=== PATIENT | male | born 1970 | race Caucasian/White ===

== ENCOUNTER → 2022-06-29 | Outpatient (CLI) | payer OTHER ==
[~2022-06-29] MED LIST: AMLO10 PO; FLUO10 PO; HYDCHL25 PO
== END | disposition home or self-care (01) ==
LOC: LAB SHORT 16:20
DX: L02.211 Cutaneous abscess of abdominal wall (principal)
CPT/HCPCS: 87070; 87075; 87077; 87147; 87186; 87205

== ENCOUNTER → 2023-11-19 | Outpatient (CLI) | payer OTHER ==
[2023-11-21 08:07] LABS: A/G RATIO 1.9 (1.2-2.2); BILIRUBIN, TOTAL 0.3 mg/dL (0.0-1.2); CREATININE, SERUM 1.11 mg/dL (0.76-1.27); GLOBULIN, TOTAL 2.2 g/dL (1.5-4.5); POTASSIUM, SERUM 4.5 mmol/L (3.5-5.2); PROTEIN, TOTAL, SERUM 6.3 g/dL (6.0-8.5)
== END | disposition home or self-care (01) ==
LOC: LAB SHORT 17:38
PROVIDERS: Family Medicine
DX: I10 Essential (primary) hypertension (principal)
CPT/HCPCS: 80053

== ENCOUNTER 2025-03-12 17:45 | Emergency (ER) | payer BC, OTHER ==
[~2025-03-12] VITALS: Ht 182.9 cm; Wt 140.6 kg
[~2025-03-12 17:45] MED LIST changes: +ASPI81CH PO; +ATOR40TA PO; +BUPROPION HCL200 M1 PO; +LISI10 PO; +LISINOPRIL-HCT1 EACH PO; +METO25 PO; +NITR.4SL SL; +OMEP20ER PO; +TERA5 PO; +TOPI25 PO; +TOPI25C PO
[2025-03-12 18:05] VITALS: BP 154/99
[2025-03-12 18:28] LABS: BASOPHILS ABSOLUTE AUTO 0.09 K/mm3 (0.00-0.23); BASOPHILS PERCENT AUTO 1 % (0-2); EOSINOPHILS ABSOLUTE AUTO 0.42 K/mm3 (0.00-0.68); EOSINOPHILS PERCENT AUTO 4 % (0-6); Hematocrit 41.3 % (37.0-53.0); Hemoglobin 14.2 g/dL (13.5-17.5); IMMATURE GRAN ABSOLUTE AUTO 0.01 K/mm3 (0.00-0.10); IMMATURE GRAN PERCENT AUTO 0 % (0-1); LYMPHOCYTES ABSOLUTE AUTO 3.97 K/mm3 (0.84-5.20); LYMPHOCYTES PERCENT AUTO 38 % (21-46); MONOCYTES ABSOLUTE AUTO 0.93 K/mm3 (0.16-1.47); MONOCYTES PERCENT AUTO 9 % (4-13); Mean Corpuscular HGB 28.8 pg (26.0-34.0); Mean Corpuscular HGB Conc 34.4 g/dL (31.5-36.5); Mean Corpuscular Volume 84 fL (80-100); Mean Platelet Volume 9.2 fL (9.1-12.4); NEUTROPHILS ABSOLUTE AUTO 4.91 K/mm3 (1.96-9.15); NEUTROPHILS PERCENT AUTO 48 % (41-73); Platelet Count 346 K/mm3 (150-400); RDW Standard Deviation 39.5 fL (35.1-46.3); Red Blood Cell Count 4.93 M/mm3 (4.30-5.90); White Blood Cell Count 10.33 K/mm3 (4.00-11.30)
[2025-03-12 18:51] LABS: Albumin, Blood 3.3 g/dL (3.4-5.0); Albumin/Globulin Ratio 0.9 (0.8-1.8); Bilirubin, Total 0.2 mg/dL (0.1-1.0); Bun/Creatinine Ratio 16.5 (12.0-20.0); Calcium, Blood 8.5 mg/dL (8.5-10.1); Creatinine, Blood 1.03 mg/dL (0.60-1.20); Globulin, Blood 3.5 g/dL (2.2-4.0); Potassium, Blood 3.7 mmol/L (3.5-5.5); Total Protein, Blood 6.8 g/dL (6.4-8.2)
[2025-03-12 18:59] LABS: Source, Urine Clean Catch
[2025-03-12 19:05] LABS: Appearance, Urine Clear (Clear); Bilirubin, Urine Neg (Neg); Blood, Urine 5+ (Neg); Color, Urine Yellow (P-Yellow); Glucose Qualitative, Urine Neg (Neg); Ketones, Urine Neg (Neg); Leukocyte Esterase, Urine Neg (Neg); Nitrite, Urine Neg (Neg); Protein, Urine 1+ (Neg); Urobilinogen, Urine NORM (Normal)
[2025-03-12 19:24] LABS: Bacteria Few /hpf; Mucus Light (0-Heavy); Red Blood Cells, Urine 50-100 /hpf (0-2); Squamous Epithelial Cells Not Seen /hpf (Few); White Blood Cells, Urine 0-2 /hpf (0-5)
== END 2025-03-12 20:33 | disposition left against medical advice (07) ==
LOC: ER 17:45
PROVIDERS: Student in an Organized Health Care Education/Training Program
DX: R31.9 Hematuria, unspecified (principal); Z53.21 Procedure and treatment not carried out due to patient leaving prior to being seen by health care provider
CPT/HCPCS: 74176; 80053; 81001; 85025; 99282-25

== ENCOUNTER → 2025-03-15 | Outpatient (CLI) | payer BC, OTHER | LOC: LAB SHORT 09:10 → LAB 09:10 | DX: R31.0 Gross hematuria (principal); R36.1 Hematospermia | CPT/HCPCS: 87086 ==